=== PATIENT | female | born 2000 | race Caucasian/White ===

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

== ENCOUNTER 2020-01-01 12:52 | Emergency (ER) | payer OTHER ==
[2020-01-01 13:36] VITALS: BP 123/64
--- NOTE | 2020-01-01 14:33 | UC ---
Shortness of Breath HPI - HPI Summary HPI Summary: 19-year-old female comes in with a chief complaint of shortness of breath. Patient reports for 4 days ago she went for running she felt short of breath afterwards. Last 2 days the shortness breath is gotten worse. No fevers no chills no cough no chest congestion. Chest feels tight. She has no calf pain no history of possible emboli she is on the Depo shot. 2 days ago she did strike her left anterior king it is tender at that site but there is no posterior calf tenderness. No history of DVT in his thrombosis. Shortness of breath is worse at night. Sometimes she has some cramping pain in her lower chest on the right side and left side. - History of Current Complaint Chief Complaint: UCGeneralIllness Stated Complaint: CHEST TIGHTNESS Time Seen by Provider: 01/01/20 13:40 Hx Last Menstrual Period: depo shot - doesn't get - Allergy/Home Medications Allergies/Adverse Reactions: Allergies Allergy/AdvReac Type Severity Reaction Status Date / Time nitrofurantoin AdvReac Nausea And Verified 01/01/20 13:37 [From Macrobid] Vomiting Home Medications: Home Medications Albuterol HFA INHALER* [Ventolin HFA Inhaler*] 2 puff INH Q4H PRN #1 mdi [Rx] medroxyPROGESTERone ACETATE* [DEPO-Provera] 1 dose IM 01/01/20 [History] PMH/Surg Hx/FS Hx/Imm Hx Previously Healthy: Yes Other History Of: Negative For: Anticoagulant Therapy - Surgical History Surgical History: Yes Surgery Procedure, Year, and Place: L arm growth plate surgery x 2, APPENDECTOMY - Family History Known Family History: Positive: None - Social History Alcohol Use: None Substance Use Type: None Smoking Status (MU): Never Smoked Tobacco Have You Smoked in the Last Year: No - Immunization History Most Recent Influenza Vaccination: UNKNOWN Most Recent Pneumonia Vaccination: NONE Vaccination Up to Date: Yes Review of Systems All Other Systems Reviewed And Are Negative: Yes Constitutional: Positive: Other - SEE HPI Skin: Positive: Negative Eyes: Positive: Negative ENT: Positive: Negative Respiratory: Positive: Shortness Of Breath Cardiovascular: Positive: Other - SEE HPI Motor: Positive: Negative Neurovascular: Positive: Negative Musculoskeletal: Positive: Negative. Negative: Calf Tenderness, Edema Neurological/Mental Status: Positive: Negative Psychological: Positive: Negative Is Patient Immunocompromised?: No Physical Exam Triage Information Reviewed: Yes Appearance: Well-Appearing, No Pain Distress, Well-Nourished Vital Signs: Initial Vital Signs Temp 98 F 01/01/20 13:30 Pulse 63 01/01/20 13:30 Resp 16 01/01/20 13:30 BP 123/64 01/01/20 13:30 Pulse Ox 100 01/01/20 13:30 Vital Signs Reviewed: Yes Eye Exam: Normal Eyes: Positive: Conjunctiva Clear ENT: Positive: Pharynx normal, TMs normal Neck: Positive: Supple Respiratory: Positive: Lungs clear, Normal breath sounds, No respiratory distress Cardiovascular: Positive: RRR Musculoskeletal: Positive: Strength Intact, ROM Intact, No Edema - NO CALF TENDERNESS Neurological: Positive: Alert Psychological: Positive: Age Appropriate Behavior Skin Exam: Normal Diagnostics - EKG Cardiac Rate: NL - AT 1343 Cardiac Rhythm: Sinus: Normal - 68BPM Ectopy: None ST Segment: Normal Shortness of Breath Dx - Course Course Of Treatment: Airport Maintenance Chief: Rhett Galloway Daniel, ([id number]) Validation Consultant: EMETERIO, ( NUANCE) Report Date: 01/01/2020 14:49:00 Report Status: Final ====== Start of Report Content Patient Name: NEIL JOHNSON Medical Record#: [id number] Ordering Physician: Gabino Rain MD Acct.#: [id number] : 02/2000 Age: 19 Sex: F Location: [facility] Exam Date: 01/01/201425 ADM Status: REG ER Order Information: CHEST PA LAT 2 S Accession Number: [id number] CPT: 19533 HISTORY: SOB,CHEST TIGHTNESS COMPARISONS: May 13, 2018 VIEWS: 2: Frontal and lateral views of the chest. FINDINGS: CARDIOMEDIASTINAL SILHOUETTE: The cardiomediastinal silhouette is normal. TIM: The tim are normal. PLEURA: The costophrenic angles are sharp. No pleural abnormalities are noted. LUNG PARENCHYMA: The lungs are clear. ABDOMEN: The upper abdomen is clear. There is no subphrenic gas. BONES AND SOFT TISSUES: No bone or soft tissue abnormalities are noted. OTHER: None. IMPRESSION: NO ACTIVE CARDIOPULMONARY DISEASE. <Electronically signed by Rhett Galloway MD in OV> 01/01/20 1446 Dictated By: Rhett Galloway MD Dictated Date/Time: 01/01/201445 Transcribed Date/Time: 01/01/201445 Copy to: CC:Larisa Callahan NP; Gabino Rain MD Imaging - [facility] [address] [address] ph ([phone]) ph ([phone]) ph ([phone]) End of Report Content I discussed the chest x-ray and EKG with the patient. I do not see any signs of ischemia or ectopy on the EKG chest x-ray does not show any acute disease process. Patient received a nebulizer of albuterol here in clinic and she feels less short of breath with it. Patient's low risk for pulmonary embolus as she has no calf pain she is not on estrogen control pill there is no family history of blood clots and her oxygen saturation and heart rate are normal. Plan will be to treat with albuterol to be used as needed and follow- up with her primary care physician. Let the patient know that if she worsened or if there is any signs of a pulmonary embolus he needed to get evaluated again right away in the emergency department. - Differential Dx/Diagnosis Provider Diagnosis: Shortness of breath Discharge ED - Sign-Out/Discharge Documenting (check all that apply): Patient Departure All imaging exams completed and their final reports reviewed: Yes - Discharge Plan Condition: Stable Disposition: HOME Prescriptions: Albuterol HFA INHALER* [Ventolin HFA Inhaler*] 2 puff INH Q4H PRN #1 mdi PRN Reason: Shortness Of Breath Patient Education Materials: Shortness of Breath (ED) Referrals: Larisa Callahan [employer]ORY T[employer] GUIDE [Primary Care Provider] - Additional Instructions: FOLLOW UP WITH YOUR DOCTOR. GO TO THE EMERGENCY DEPARTMENT IF WORSE; SHORTNESS OF BREATH, CHEST PAIN, FEVER , YOU FEEL ILL OR ANY QUESTIONS OR CONCERNS. - Billing Disposition and Condition Condition: STABLE Disposition: Home
[2020-01-01] MEDS ORDERED: Albuterol 2.5 MG/3 ML NEB.SOL* (0.083%) INH ONE (14:36)
== END 2020-01-01 15:23 | disposition home or self-care (01) ==
LOC: UCEAST 12:52
DX: R06.02 Shortness of breath (principal); R07.89 Other chest pain; Z88.1 Allergy status to other antibiotic agents
CPT/HCPCS: 71046; 93005; 99212; G0463